=== PATIENT | female | born 1985 | race Caucasian/White ===

== ENCOUNTER 2023-02-25 22:02 | Emergency (ER) | payer MEDICAID ==
[~2023-02-25] VITALS: Ht 152.4 cm; Wt 127.0 kg
[2023-02-25] MEDS ORDERED: NABU-141 PO (23:07)
--- NOTE | 2023-02-25 23:24 | NUR ---
XRAY AT BEDSIDE
[2023-02-25] MEDS ORDERED: KETOROLAC TROMETHAMINE INJ 60 MG/2 ML VIAL IM ONE ×2 (23:26→23:30)
--- NOTE | 2023-02-26 00:44 | NUR ---
Patient discharged to home in stable condition. Written and verbal after care instructions given. Patient verbalizes understanding of instruction.
[2023-02-26 00:49] VITALS: BP 157/73
== END 2023-02-26 00:49 | disposition home or self-care (01) ==
LOC: ER 22:04
DX: M54.2 Cervicalgia (principal); R07.89 Other chest pain; Z79.899 Other long term (current) drug therapy; V89.2XXA Person injured in unspecified motor-vehicle accident, traffic, initial encounter; Y93.89 Activity, other specified; Y92.89 Other specified places as the place of occurrence of the external cause; Y99.8 Other external cause status
CPT/HCPCS: 99284; 71046; 96372; 72050; J1885